=== PATIENT | female | born 1965 | race Caucasian/White ===

== ENCOUNTER 2017-03-27 09:20 | Emergency (ER) | payer BC ==
[2017-03-27] MEDS ORDERED: HUMULIN R 100 UNIT/ML VIAL SC ONE (09:21)
[2017-03-27 10:51] LABS: BASO % 0.6 % (0-6); EOS % 0.3 % (0-6); GRAN % 73.9 % (47-80); HEMATOCRIT 49.1 % (35.0-47.0); HEMOGLOBIN 16.9 gm/dl (11.6-16.0); LYMPH % 19.2 % (16-45); MEAN CELL VOLUME 83.8 fl (81-97); MEAN CORPUSCULAR HEMOGLOBIN 28.8 pg (27-33); MEAN CORPUSCULAR HGB CONC 34.4 g/dl (32-36); MEAN PLATELET VOLUME 11.1 fl (7.4-10.4); PLATELET COUNT 392 K/uL (130-400); RED BLOOD COUNT 5.86 M/uL (3.80-5.40); RED CELL DISTRIBUTION WIDTH 12.7 % (11.5-14.5); WHITE BLOOD COUNT W/O DIFF 10.9 K/uL (4.2-12.2)
[2017-03-27 11:04] LABS: BILIRUBIN,TOTAL 0.5 mg/dL (0.2-1.0); CREATININE 1.3 mg/dL (0.5-0.9); TOTAL PROTEIN 8.7 g/dL (6.6-8.7)
[2017-03-27 11:09] LABS: ALB/GLOB RATIO 1.4 (1.1-1.8); ALBUMIN 5.1 g/dL (4.0-5.0)
[2017-03-27 11:14] LABS: CREATINE PHOSPHOKINASE 45 U/L (26-192)
[2017-03-27 11:16] LABS: CKMB 3.8 ng/mL (<3.77)
[2017-03-27 11:22] LABS: THYROID STIMULATING HORMONE 1.23 uIU/mL (0.270-4.20)
[2017-03-27] MEDS ORDERED: 0.9 % SODIUM CHLORIDE 1,000 ML BAG IV ONE (11:23)
[2017-03-27] MEDS ORDERED: HUMULIN R 100 UNIT/ML VIAL SQ ONE (11:24)
[2017-03-27 11:46] LABS: ACETONE,SERUM POSITIVE (NEGATIVE)
--- NOTE | 2017-03-27 12:06 | Emergency Department Record ---
History of Present Illness - General Chief Complaint: Dizziness Stated Complaint: DIZZINESS Time Seen by Provider: 03/27/17 10:02 Source: Patient Mode of Arrival: Ambulatory Limitations: No limitations - History of Present Illness Initial Comments: pt has not felt well for 2 wks w inc thirst and inc urination and lack of energy Complaint: Dizziness Onset/Timin -: Days(s) Description: Difficulty walking, Lightheadedness, Off-balance History of Same: Yes Improves With: Nothing Worsens With: Nothing Associated Symptoms: Chest pain, Loss of appetite, Weakness - Leandro Coma Scale Eye Response: (4) Open spontaneously Motor Response: (6) Obeys commands Verbal Response: (5) Oriented [place] Total: 15 - Symptoms of Stroke Symptoms of stroke: Dizziness - Related Data Home Medications Medication Instructions Recorded Confirmed Last Taken Cholecalciferol (Vitamin D3) 5,000 unit PO DAILY 03/27/17 03/27/17 03/26/17 [Vitamin D3] Diltiazem HCl [Diltiazem ER] 240 mg PO DAILY PRN 03/27/17 03/27/17 03/26/17 Duloxetine HCl [Cymbalta] 60 mg PO DAILY 03/27/17 03/27/17 03/26/17 Levocarnitine Tartrate 500 mg PO DAILY 03/27/17 03/27/17 03/26/17 [l-Carnitine] Nebivolol HCl [Bystolic] 20 mg PO DAILY 03/27/17 03/27/17 03/26/17 Promethazine HCl [Phenergan] 25 mg PO BID 03/27/17 03/27/17 03/26/17 Ranitidine HCl [Zantac] 150 mg PO QHS 03/27/17 03/27/17 03/26/17 Allergies Allergy/AdvReac Type Severity Reaction Status Date / Time iodine Allergy ANAPHYLAXIS Verified 03/27/17 12:09 shellfish derived Allergy ANAPHYLAXIS Verified 03/27/17 12:09 Travel Screening - Travel/Exposure Within Last 30 Days Have you traveled within the last 30 days?: No - Travel/Exposure Within Last Year Have you traveled outside the [place] in the last year?: No - Additonal Travel Details Have you been exposed to anyone with a communicable illness?: No - Travel Symptoms Symptom Screening: None Review of Systems Reviewed: No additional complaints except as noted below Constitutional: Reports: As per HPI, Malaise, Weakness. Denies: Chills, Fever, Night sweats, Weight change Eyes: Reports: As per HPI. Denies: Eye discharge, Eye pain, Photophobia, Vision change ENT: Reports: As per HPI. Denies: Congestion, Dental pain, Ear pain, Epistaxis , Hearing loss, Throat pain Respiratory: Reports: As per HPI. Denies: Cough, Dyspnea, Hemoptysis, Stridor, Wheezes Cardiovascular: Reports: As per HPI. Denies: Arrhythmia, Chest pain, Dyspnea on exertion, Edema, Murmurs, Orthopnea, Palpitations, Paroxysmal nocturnal dyspnea, Rheumatic Fever Endocrine: Reports: As per HPI, Fatigue, Polydipsia, Polyuria. Denies: Heat or cold intolerance Gastrointestinal: Reports: As per HPI, Nausea, Vomiting. Denies: Abdominal pain , Constipation, Diarrhea, Hematemesis, Hematochezia, Melena Genitourinary: Reports: As per HPI. Denies: Abnormal menses, Discharge, Dyspareunia, Dysuria, Frequency, Hematuria, Incontinence, Retention, Urgency Musculoskeletal: Reports: As per HPI. Denies: Arthralgia, Back pain, Gout, Joint swelling, Myalgia, Neck pain Skin: Reports: As per HPI. Denies: Bruising, Change in color, Change in hair/ nails, Lesions, Pruritus, Rash Neurological: Reports: As per HPI. Denies: Abnormal gait, Confusion, Headache, Numbness, Paresthesias, Seizure, Tingling, Tremors, Vertigo, Weakness Psychiatric: Reports: As per HPI. Denies: Anxiety, Auditory hallucinations, Depression, Homicidal thoughts, Suicidal thoughts, Visual hallucinations Hematological/Lymphatic: Reports: As per HPI. Denies: Anemia, Blood Clots, Easy bleeding, Easy bruising, Swollen glands Past Medical History - SOCIAL HISTORY Smoking Status: Never smoker Alcohol Use: None Drug Use: None - RESPIRATORY Hx Respiratory Disorders: No - CARDIOVASCULAR Hx Cardio Disorders: No - NEURO Hx Neuro Disorders: Yes Hx Headaches: Yes - GI Hx GI Disorders: Yes Hx Diverticulitis: Yes - Hx Genitourinary Disorders: Yes Hx Kidney Stones: Yes - ENDOCRINE Hx Endocrine Disorders: No Hx Diabetes: (not offically dx'd) - MUSCULOSKELETAL Hx Musculoskeletal Disorders: Yes Hx Fibromyalgia: Yes Hx Gout: Yes - PSYCH Hx Psych Problems: No - HEMATOLOGY/ONCOLOGY Hx Hematology/Oncology Disorders: No Family Medical History Any Significant Family History?: No Physical Exam - General General Appearance: Alert, Oriented x3, Cooperative, Mild distress - Head Head exam: Normal inspection - Eye Eye exam: Normal appearance, PERRL, EOMI Pupils: Normal accommodation - ENT ENT exam: Normal exam, Mucous membranes dry, Normal external ear exam, Normal orophraynx Ear exam: Normal external inspection. negative: External canal tenderness Nasal Exam: Normal inspection. negative: Discharge, Sinus tenderness Mouth exam: Normal external inspection, Tongue normal Teeth exam: Normal inspection. negative: Dental caries Throat exam: Normal inspection. negative: Tonsillar erythema, Tonsillar exudate - Neck Neck exam: Normal inspection, Full ROM. negative: Tenderness - Respiratory Respiratory exam: Normal lung sounds bilaterally. negative: Respiratory distress - Cardiovascular Cardiovascular Exam: Regular rate, Normal rhythm, Normal heart sounds - GI/Abdominal GI/Abdominal exam: Soft, Normal bowel sounds. negative: Tenderness - Rectal Rectal exam: Deferred - exam: Deferred - Extremities Extremities exam: Normal inspection, Full ROM, Normal capillary refill. negative: Tenderness - Back Back exam: Reports: Normal inspection, Full ROM. Denies: Muscle spasm, Rash noted, Tenderness - Neurological Neurological exam: Alert, Normal gait, Oriented X3, Reflexes normal - Psychiatric Psychiatric exam: Normal affect, Normal mood - Skin Skin exam: Dry, Intact, Normal color, Warm Course Vital Signs 03/27/17 09:21 Temperature 98.0 F Pulse Rate 101 H Respiratory 20 Rate Blood Pressure 177/116 Pulse Ox 97 Medical Decision Making - Lab Data Result diagrams: 03/27/17 10:13 03/27/17 10:13 Lab Results 03/27/17 03/27/17 03/27/17 Range/Units 10:13 10:13 10:13 WBC 10.9 (4.2-12.2) K/uL RBC 5.86 H (3.80-5.40) M/uL Hgb 16.9 H (11.6-16.0) gm/dl Hct 49.1 H (35.0-47.0) % MCV 83.8 (81-97) fl MCH 28.8 (27-33) pg MCHC 34.4 (32-36) g/dl RDW 12.7 (11.5-14.5) % Plt Count 392 (130-400) K/uL MPV 11.1 H (7.4-10.4) fl Gran % 73.9 (47-80) % Lymphocytes % 19.2 (16-45) % Monocytes % 6.0 (0-9) % Eosinophils % 0.3 (0-6) % Basophils % 0.6 (0-6) % Sodium 135 L (136-145) mmol/L Potassium 5.0 H (3.4-4.5) mmol/L Chloride 90 L (98-107) mmol/L Carbon Dioxide 12.0 L (22-29) mmol/L Anion Gap 33.0 H (7-16) BUN 22 H (6-20) mg/dL Creatinine 1.3 H (0.5-0.9) mg/dL Estimated GFR 46 mL/min Random Glucose 600 H* (74-109) mg/dL Calcium 10.0 (8.6-10.0) mg/dL Total Bilirubin 0.50 (0.2-1.0) mg/dL AST 19 (10.0-35.0) U/L ALT 38 H (<33) U/L Alkaline Phosphatase 120 H (35-104) U/L Creatine Kinase 45 (26-192) U/L CK-MB (CK-2) 3.8 H (<3.77) ng/mL Troponin T < 0.010 (0-0.010) ng/mL Total Protein 8.7 (6.6-8.7) g/dL Albumin 5.1 H (4.0-5.0) g/dL Globulin 3.6 (1.4-4.8) gm/dL Albumin/Globulin Ratio 1.4 (1.1-1.8) TSH 1.23 (0.270-4.20) uIU/mL Acetone, Qual (NEGATIVE) 03/27/17 Range/Units 11:31 WBC (4.2-12.2) K/uL RBC (3.80-5.40) M/uL Hgb (11.6-16.0) gm/dl Hct (35.0-47.0) % MCV (81-97) fl MCH (27-33) pg MCHC (32-36) g/dl RDW (11.5-14.5) % Plt Count (130-400) K/uL MPV (7.4-10.4) fl Gran % (47-80) % Lymphocytes % (16-45) % Monocytes % (0-9) % Eosinophils % (0-6) % Basophils % (0-6) % Sodium (136-145) mmol/L Potassium (3.4-4.5) mmol/L Chloride (98-107) mmol/L Carbon Dioxide (22-29) mmol/L Anion Gap (7-16) BUN (6-20) mg/dL Creatinine (0.5-0.9) mg/dL Estimated GFR mL/min Random Glucose (74-109) mg/dL Calcium (8.6-10.0) mg/dL Total Bilirubin (0.2-1.0) mg/dL AST (10.0-35.0) U/L ALT (<33) U/L Alkaline Phosphatase (35-104) U/L Creatine Kinase (26-192) U/L CK-MB (CK-2) (<3.77) ng/mL Troponin T (0-0.010) ng/mL Total Protein (6.6-8.7) g/dL Albumin (4.0-5.0) g/dL Globulin (1.4-4.8) gm/dL Albumin/Globulin Ratio (1.1-1.8) TSH (0.270-4.20) uIU/mL Acetone, Qual Positive (NEGATIVE) Disposition Disposition: Admit Clinical Impression: New onset type 2 diabetes mellitus DKA (diabetic ketoacidosis) Qualifiers: Diabetes mellitus type: type 2 Diabetes mellitus complication detail: without coma Qualified Code(s): E11.10 - Type 2 diabetes mellitus with ketoacidosis without coma Disposition: Still a Patient at [facility] Decision to Admit: Admit from ER Decision to Admit Date: 03/27/17 Decision to Admit Time: 13:02 Forms: Patient Portal Access Quality - Quality Measures Quality Measures: N/A - Blood Pressure Screening Does Patient Have Any of the Following: No Blood Pressure Classification: Hypertensive Reading Systolic Measurement: 177 Diastolic Measurement: 116 Screening for High Blood Pressure: < First Hypertensive BP, F/U Documented > [ G8950] First Hypertensive Follow-up Interventions: Follow-up with rescreen GT 1 day and LT 4 weeks.
[2017-03-27 12:13] LABS: URINE APPEARANCE CLEAR; URINE BILIRUBIN SMALL (NEGATIVE); URINE BLOOD TRACE-I (NEGATIVE); URINE COLOR YELLOW; URINE LEUKOCYTE ESTERASE NEGATIVE (NEGATIVE); URINE NITRITE NEGATIVE (NEGATIVE); URINE UROBILINOGEN 0.2 E.U./dL (0.20 - 1.00)
[2017-03-27 12:15] LABS: URINE GLUCOSE (UA) >=1000 mg/dL (NEGATIVE); URINE KETONE 160 mg/dL (NEGATIVE)
[2017-03-27 12:19] LABS: URINE WBC NONE SEEN (0-2/hpf)
[2017-03-27] MEDS ORDERED: INSULIN REGULAR, HUMAN 100 UNIT in 0.9 % SODIUM CHLORIDE 100ML 100 ML IV SCH ×2 (13:30)
== END 2017-03-27 16:25 | disposition still patient (30) ==
LOC: ER 09:20
DX: E11.10 Type 2 diabetes mellitus with ketoacidosis without coma (principal); R42 Dizziness and giddiness; R07.9 Chest pain, unspecified; R53.1 Weakness
CPT/HCPCS: 99285 ×2; 96372; 96365; 96366; 82550; 82800; 85025; 82553; 80053; 36416; 81001; 82009; 82948; 84443; 84484; 93005; 93010; J1815; J7030

== ENCOUNTER 2018-01-26 21:18 | Emergency (ER) | payer BC ==
[2018-01-26] MEDS ORDERED: LORAZEPAM 2 MG/ML VIAL IV ONE (21:32)
[2018-01-26] MEDS ORDERED: METOPROLOL TART 5 MG/5 ML VIAL IV ONE (21:32)
--- NOTE | 2018-01-26 21:37 | Emergency Department Record ---
History of Present Illness - General Chief Complaint: Hypertension Stated Complaint: HIGH BP Time Seen by Provider: 01/26/18 21:32 Source: Patient Mode of Arrival: Ambulatory Limitations: No limitations - History of Present Illness Initial Comments: 52 yo female presents to ED for evaluation of elevated blood pressure and "feeling as though I'm going to pass out". Patient reports a history of HTN controlled with Losartan, denies change in her medications or missed dosing. Patient denies chest pain or focal weakness on examination, does reports headache symptoms. MD Complaint: Lightheadedness Onset/Timin -: Week(s) Timing: Unsure Description: Lightheadedness Improves With: Nothing Worsens With: Nothing Associated Symptoms: Denies other symptoms - Leandro Coma Scale Eye Response: (4) Open spontaneously Motor Response: (6) Obeys commands Verbal Response: (5) Oriented [place] Total: 15 - Related Data Home Medications Medication Instructions Recorded Confirmed Last Taken Insulin Aspart [Novolog] 5 unit SQ WMEALS 01/26/18 01/26/18 Unknown Insulin Detemir [Levemir Flextouch] 22 unit SC DAILY 01/26/18 01/26/18 Unknown Ketorolac Tromethamine 10 mg PO ASDIR 01/26/18 01/26/18 Unknown Losartan Potassium [Cozaar] 50 mg PO DAILY 01/26/18 01/26/18 Unknown Allergies Allergy/AdvReac Type Severity Reaction Status Date / Time iodine Allergy ANAPHYLAXIS Verified 03/27/17 12:09 shellfish derived Allergy ANAPHYLAXIS Verified 03/27/17 12:09 Review of Systems Constitutional: Denies: Chills, Fever, Malaise, Night sweats Eyes: Denies: Eye discharge, Eye pain ENT: Denies: Congestion, Ear pain, Epistaxis Respiratory: Denies: Cough, Dyspnea Cardiovascular: Denies: Chest pain, Dyspnea on exertion Endocrine: Denies: Fatigue, Heat or cold intolerance Gastrointestinal: Denies: Abdominal pain, Nausea, Vomiting Genitourinary: Denies: Incontinence, Retention Musculoskeletal: Denies: Arthralgia, Back pain Skin: Denies: Bruising, Change in color Neurological: Reports: Headache, Other (Lightheaded sensation). Denies: Abnormal gait, Confusion, Seizure Psychiatric: Denies: Anxiety Hematological/Lymphatic: Denies: Anemia, Blood Clots Past Medical History - SOCIAL HISTORY Smoking Status: Never smoker Drug Use: None - RESPIRATORY Hx Respiratory Disorders: No - CARDIOVASCULAR Hx Cardio Disorders: No - NEURO Hx Neuro Disorders: Yes Hx Headaches: Yes - GI Hx GI Disorders: Yes Hx Diverticulitis: Yes - Hx Genitourinary Disorders: Yes Hx Kidney Stones: Yes - ENDOCRINE Hx Endocrine Disorders: No Hx Diabetes: (not offically dx'd) - MUSCULOSKELETAL Hx Musculoskeletal Disorders: Yes Hx Fibromyalgia: Yes Hx Gout: Yes - PSYCH Hx Psych Problems: No - HEMATOLOGY/ONCOLOGY Hx Hematology/Oncology Disorders: No Physical Exam - General General Appearance: Alert, Oriented x3, Cooperative, Mild distress Limitations: No limitations - Head Head exam: Atraumatic, Normocephalic, Normal inspection Head exam detail: negative: Abrasion, Contusion, Orta's sign, General tenderness, Hematoma, Laceration - Eye Eye exam: Normal appearance. negative: Conjunctival injection, Periorbital swelling, Periorbital tenderness, Scleral icterus - ENT Ear exam: negative: Auricular hematoma, Auricular trauma Nasal Exam: negative: Active bleeding, Discharge, Dried blood, Foreign body Mouth exam: negative: Drooling, Laceration, Muffled voice, Tongue elevation - Neck Neck exam: Normal inspection. negative: Meningismus, Tenderness - Respiratory Respiratory exam: Normal lung sounds bilaterally. negative: Rales, Respiratory distress, Rhonchi, Stridor - Cardiovascular Cardiovascular Exam: Regular rate, Normal rhythm, Normal heart sounds - GI/Abdominal GI/Abdominal exam: Soft. negative: Rebound, Rigid, Tenderness - Rectal Rectal exam: Deferred - exam: Deferred - Extremities Extremities exam: Normal inspection. negative: Pedal edema, Tenderness - Back Back exam: Denies: CVA tenderness (R), CVA tenderness (L) - Neurological Neurological exam: Alert, Normal gait, Oriented X3 - Psychiatric Psychiatric exam: Normal affect, Normal mood - Skin Skin exam: Normal color. negative: Abrasion Type of lesion: negative: abrasion Course - Reevaluation(s) Reevaluation #1: 01/26/18 21:46 EKG: NSR 86 LAD, normal intervals No acute ST-T wave changes are present. Reevaluation #2: 01/26/18 22:03 Laboratory studies were reviewed and are grossly unremarkable for an acute process. Reevaluation #3: 01/26/18 22:48 Patient is back from CT imaging BP 174/82. Patient reports improvement in her headache symptoms as well. Reevaluation #4: 01/26/18 23:10 CT Head w/wo contrast: No acute process Correlate for possible exopthalmos Patient was updated on all results, reports that her headache symptoms have improved to 2/10. Repeat BP 159/88. Patient was instructed to follow-up with her PCP Sunday for further evaluation. Medical Decision Making - Lab Data Result diagrams: 01/26/18 21:30 01/26/18 21:30 Disposition Disposition: Discharge Clinical Impression: Hypertension Qualifiers: Hypertension type: unspecified Qualified Code(s): I10 - Essential (primary) hypertension Headache Qualifiers: Headache type: unspecified Headache chronicity pattern: acute headache Intractability: not intractable Qualified Code(s): R51 - Headache Disposition: Home, Self-Care Condition: (2) Stable Instructions: Hypertension (ED) Additional Instructions: Return to ED if your symptoms worsen or if you have any concerns. Follow-up with your family doctor in 1-3 days as directed. Forms: Patient Portal Access Time of Disposition: 23:13 Quality - Quality Measures Quality Measures: N/A - Blood Pressure Screening Does Patient Have Any of the Following: Active Dx of HTN Blood Pressure Classification: Hypertensive Reading Systolic Measurement: 215 Diastolic Measurement: 123 Screening for High Blood Pressure: Patient Exclusion, Hx of HTN [G9744]
[2018-01-26 21:39] LABS: BASO % 0.7 % (0-6); EOS % 1.2 % (0-6); GRAN % 54.3 % (47-80); HEMATOCRIT 40.6 % (35.0-47.0); HEMOGLOBIN 13.6 gm/dl (11.6-16.0); LYMPH % 34.1 % (16-45); MEAN CELL VOLUME 87.9 fl (81-97); MEAN CORPUSCULAR HEMOGLOBIN 29.4 pg (27-33); MEAN CORPUSCULAR HGB CONC 33.5 g/dl (32-36); MEAN PLATELET VOLUME 9.4 fl (7.4-10.4); MONO % 9.7 % (0-9); PLATELET COUNT 371 K/uL (130-400); RED BLOOD COUNT 4.62 M/uL (3.80-5.40); RED CELL DISTRIBUTION WIDTH 12.6 % (11.5-14.5); WHITE BLOOD COUNT W/O DIFF 8.2 K/uL (4.2-12.2)
[2018-01-26 21:51] LABS: BLOOD UREA NITROGEN 16 mg/dL (6-20); EST GLOMERULAR FILTRATION RATE > 60 mL/min
[2018-01-26 21:52] LABS: TOTAL PROTEIN 7.3 g/dL (6.6-8.7)
[2018-01-26 21:54] LABS: GLUCOSE,RANDOM 183 mg/dL (74-109)
[2018-01-26 21:57] LABS: ALB/GLOB RATIO 1.7 (1.1-1.8); ALBUMIN 4.6 g/dL (4.0-5.0); ALKALINE PHOSPHATASE 103 U/L (35-104); ALT/SGPT 56 U/L (<33); AST/SGOT 40 U/L (10.0-35.0)
[2018-01-26] MEDS ORDERED: ONDANSETRON HCL IV 4 MG/2 ML VIAL IVP ONE (22:11)
[2018-01-26] MEDS ORDERED: DIPHENHYDRAMINE HCL 50 MG/ML VIAL IVP ONE (22:12)
[2018-01-26] MEDS ORDERED: METOCLOPRAMIDE HCL 10 MG/2 ML VIAL IVP ONE (22:12)
--- NOTE | 2018-01-28 12:28 | CT SCAN REPORT ---
EXAM: CT SCAN OF THE HEAD WITH AND WITHOUT CONTRAST HISTORY: PATIENT HAS FRONTAL HEADACHES. TECHNIQUE: Serial axial CT scan of the head was performed at 2.5 mm intervals from the base of the skull to the apex with and without the use of intravenous contrast. Approximately 60 ml of Omnipaque 300 was administered intravenously. FINDINGS: The ventricles demonstrate normal contour, size, and attenuation. There is mild frontal volume loss. There is no mass or mass effect. The lyn and white differentiation appear within normal limits. There is no CT evidence of intra or extraaxial fluid to suggest bleeding. The lyn and white differentiation is within normal limits. Post contrast images demonstrate no obvious enhancing mass lesions. Of note is that the patient's bilateral globes are anterior to the line between the bilateral orbital ramires. This finding suggest exophthalmus. There is abundant retroseptal fat. Clinical correlation for thyroid ophthalmopathy is recommended. Bone windows demonstrate no CT evidence of a fracture or dislocation of the skull. The paranasal sinuses are unremarkable. IMPRESSION: 1. NO CT EVIDENCE OF AN ACUTE INTRACRANIAL PROCESS. 2. THERE ARE FINDINGS SUGGESTIVE OF EXOPHTHALMUS. CLINICAL CORRELATION FOR THYROID OPHTHALMOPATHY IS RECOMMENDED. JOB NUMBER: [id number] MTDD
== END 2018-01-26 23:20 | disposition home or self-care (01) ==
LOC: ER 21:18
DX: I10 Essential (primary) hypertension (principal); R51 Headache; R42 Dizziness and giddiness; E11.9 Type 2 diabetes mellitus without complications; Z79.01 Long term (current) use of anticoagulants
CPT/HCPCS: 99284 ×2; 96374; 96375; 85025; 80053; 70470; 93005; 93010; Q9967; J2405; J2060; J1200; J2765

== ENCOUNTER 2018-12-06 08:52 | Emergency (ER) | payer BC ==
--- NOTE | 2018-12-06 09:05 | Emergency Department Record ---
History of Present Illness - General Chief complaint: Flank Pain Stated complaint: RIGHT SIDE FLANK PAIN Time Seen by Provider: 12/06/18 08:54 Source: Patient Mode of Arrival: Ambulatory Limitations: No limitations - History of Present Illness Initial comments: 53 yo female presents with right flank pain that started this morning. She reports it is sharp and starts in her back. The pain radiates around to the front. No fever. She has associated nausea. No diarrhea. She was seen by her PCP 2 days ago. She has some urinary frequency and burning. No visible blood. No rash. She has had renal stones in the past. MD Complaint: Dysuria, Other (right flank pain) -: Hour(s) Location: RLQ Radiation: RLQ Severity: Severe Quality: Aching, Sharp Consistency: Constant Improves with: None Worsens with: None Associated Symptoms: Abdominal pain, Loss of appetite, Nausea/vomiting - Related Data Sexually active: No Previous Rx's Medication Instructions Recorded Hydrocodone/Acetaminophen [[place] 1 each PO Q6H #8 tablet 12/06/18 5-325 Tablet] Ondansetron [Zofran Odt] 4 mg PO Q8H #15 tab.rapdis 12/06/18 Tamsulosin HCl [Flomax] 0.4 mg PO DAILY #7 cap.er.24h 12/06/18 Allergies Allergy/AdvReac Type Severity Reaction Status Date / Time iodine Allergy ANAPHYLAXIS Verified 03/27/17 12:09 shellfish derived Allergy ANAPHYLAXIS Verified 03/27/17 12:09 Review of Systems Constitutional: Denies: Chills, Fever, Malaise, Weakness Eyes: Denies: Eye discharge ENT: Denies: Congestion, Throat pain Respiratory: Denies: Cough, Dyspnea, Hemoptysis, Stridor, Wheezes Cardiovascular: Denies: Chest pain, Palpitations, Syncope Endocrine: Denies: Fatigue, Polydipsia, Polyuria Gastrointestinal: Reports: Abdominal pain (R flank pain), Nausea, Vomiting. Denies: Constipation, Diarrhea Genitourinary: Denies: Dysuria, Urgency Musculoskeletal: Reports: Back pain (R flank pain). Denies: Arthralgia Skin: Denies: Bruising, Change in color, Rash Neurological: Denies: Headache Psychiatric: Denies: Anxiety Hematological/Lymphatic: Denies: Easy bleeding, Easy bruising Past Medical History - SOCIAL HISTORY Smoking Status: Never smoker Drug Use: None - RESPIRATORY Hx Respiratory Disorders: No - CARDIOVASCULAR Hx Cardio Disorders: No - NEURO Hx Neuro Disorders: Yes Hx Headaches: Yes - GI Hx GI Disorders: Yes Hx Diverticulitis: Yes - Hx Genitourinary Disorders: Yes Hx Kidney Stones: Yes - ENDOCRINE Hx Endocrine Disorders: No Hx Diabetes: (not offically dx'd) - MUSCULOSKELETAL Hx Musculoskeletal Disorders: Yes Hx Fibromyalgia: Yes Hx Gout: Yes - PSYCH Hx Psych Problems: No - HEMATOLOGY/ONCOLOGY Hx Hematology/Oncology Disorders: No Physical Exam - General General Appearance: Alert, Oriented x3, Cooperative, No acute distress Limitations: No limitations - Head Head exam: Atraumatic, Normal inspection - Eye Eye exam: Normal appearance. negative: Conjunctival injection - ENT ENT exam: Normal exam, Mucous membranes moist Ear exam: Normal external inspection Nasal Exam: Normal inspection Mouth exam: Normal external inspection - Neck Neck exam: Normal inspection - Respiratory Respiratory exam: Normal lung sounds bilaterally. negative: Respiratory distress - Cardiovascular Cardiovascular Exam: Regular rate, Normal rhythm, Normal heart sounds - GI/Abdominal GI/Abdominal exam: Soft, Tenderness (Tender R flank pain on exam, normal inspection) - Rectal Rectal exam: Deferred - exam: Deferred - Extremities Extremities exam: Normal inspection. negative: Tenderness - Back Back exam: Denies: CVA tenderness (R), CVA tenderness (L) - Neurological Neurological exam: Alert, Oriented X3 - Psychiatric Psychiatric exam: Normal affect, Normal mood - Skin Skin exam: Dry, Intact, Normal color, Warm Course - Reevaluation(s) Reevaluation #1: 12/06/18 09:56 The CBC was normal Moderate blood noted on the UA. N-LE-, No bacteria Note: she has not started her antibiotic 12/06/18 10:33 12/06/18 11:[address] was consistent with 2.5mm distal ureteral stone. Incidental findings also reviewed and discussed with the patient Her pain is controlled at this time She requests flomax A strainer was provided She will be OK's home with supportive care for passing a stone No sign of UTI on today's UA. No immediate strong indication for antibiotics Medical Decision Making - Lab Data Result diagrams: 12/06/18 09:20 12/06/18 09:20 Disposition Disposition: Discharge Clinical Impression: Renal colic on right side Disposition: Home, Self-Care Condition: (1) Good Instructions: Renal Colic (ED) Additional Instructions: Review this ER visit and the tests performed with your family doctor including the final CT report to review any incidental findings Call your doctor for the next available follow up appointment Return to the ER for a recheck if worse, any new concerns or questions Take the prescriptions provided as directed Prescriptions: Tamsulosin HCl [Flomax] 0.4 mg PO DAILY #7 cap.er.24h Hydrocodone/Acetaminophen [[place] 5-325 Tablet] 1 each PO Q6H #8 tablet Ondansetron [Zofran Odt] 4 mg PO Q8H #15 tab.rapdis Forms: Patient Portal Access Time of Disposition: 11:07 Quality - Quality Measures Quality Measures: N/A - Blood Pressure Screening Does Patient Have Any of the Following: No Blood Pressure Classification: Hypertensive Reading Systolic Measurement: 224 Diastolic Measurement: 126 Screening for High Blood Pressure: < Pre-Hypertensive BP, F/U Documented > [G8950] Pre-Hypertensive Follow-up Interventions: Referral to alternative/primary care provider.
[2018-12-06] MEDS ORDERED: ONDANSETRON HCL IV 4 MG/2 ML VIAL IVP ONE (09:15)
[2018-12-06] MEDS ORDERED: KETOROLAC 30 MG/ML VIAL IVP ONE (09:15)
[2018-12-06] MEDS ORDERED: 0.9 % SODIUM CHLORIDE 1,000 ML BAG IV ONE (09:15)
[2018-12-06 09:44] LABS: ABSOLUTE NEUTROPHIL COUNT 3.08; BASO % 0.3 % (0-6); EOS % 1.8 % (0-6); GRAN % 46.5 % (47-80); HEMATOCRIT 42.4 % (35.0-47.0); HEMOGLOBIN 14.8 gm/dl (11.6-16.0); LYMPH % 40.2 % (16-45); MEAN CELL VOLUME 83.5 fl (81-97); MEAN CORPUSCULAR HEMOGLOBIN 29.1 pg (27-33); MEAN CORPUSCULAR HGB CONC 34.9 g/dl (32-36); MEAN PLATELET VOLUME 10.3 fl (7.4-10.4); MONO % 11.2 % (0-9); PLATELET COUNT 307 K/uL (130-400); RED BLOOD COUNT 5.08 M/uL (3.80-5.40); RED CELL DISTRIBUTION WIDTH 12.5 % (11.5-14.5); WHITE BLOOD COUNT W/O DIFF 6.6 K/uL (4.2-12.2)
[2018-12-06 09:45] LABS: URINE APPEARANCE CLEAR; URINE BILIRUBIN NEGATIVE (NEGATIVE); URINE BLOOD MODERATE (NEGATIVE); URINE COLOR YELLOW; URINE KETONE TRACE (NEGATIVE); URINE LEUKOCYTE ESTERASE NEGATIVE (NEGATIVE); URINE NITRITE NEGATIVE (NEGATIVE); URINE UROBILINOGEN 0.2 E.U./dL (0.20 - 1.00)
[2018-12-06 09:51] LABS: URINE GLUCOSE (UA) >=1000 mg/dL (NEGATIVE)
[2018-12-06 09:58] LABS: BLOOD UREA NITROGEN 11 mg/dL (6-20); CREATININE 0.8 mg/dL (0.5-0.9); EST GLOMERULAR FILTRATION RATE > 60 mL/min
[2018-12-06 09:59] LABS: TOTAL PROTEIN 7.3 g/dL (6.6-8.7)
[2018-12-06 10:01] LABS: GLUCOSE,RANDOM 402 mg/dL (74-109)
[2018-12-06 10:04] LABS: ALB/GLOB RATIO 1.8 (1.1-1.8); ALBUMIN 4.7 g/dL (4.0-5.0); ALKALINE PHOSPHATASE 115 U/L (35-104); AST/SGOT 43 U/L (10.0-35.0)
[2018-12-06 10:04] LABS: URINE EPITHELIAL CELLS 0 - 2 (FEW); URINE RBC 36 - 50 (NONE SEEN); URINE WBC NONE SEEN (0-2/hpf)
[2018-12-06 10:15] LABS: ALT/SGPT 75 U/L (<33)
[2018-12-06] MEDS ORDERED: MORPHINE SULFATE 5 MG/ML VIAL IVP ONE (10:30)
[2018-12-06] MEDS ORDERED: TAMSULOSIN HCL 0.4 MG CAP.ER.24H PO ONE (11:01)
[2018-12-06] MEDS ORDERED: HYDROCODONE/APAP 5/325MG TABLET PO ONE (11:03)
[2018-12-06] MEDS ORDERED: ONDANSETRON 4 MG ODT TABLET SL ONE (11:03)
--- NOTE | 2018-12-09 19:35 | CT SCAN REPORT ---
EXAM: CT SCAN ABDOMEN/PELVIS WO CONTRAST HISTORY: RIGHT FLANK PAIN. DYSURIA AND HEMATURIA. TECHNIQUE: Thin-collimation helical CT examination of the abdomen and pelvis is performed without intravenous contrast. Lack of oral and IV contrast utilization limits evaluation of the bowel and solid viscera, respectively. COMPARISON: CT abdomen and pelvis without contrast dated 12/04/2012. FINDINGS: There is a 5 mm calcified granuloma in the right lung base. Mild dependent atelectasis in each lung base. Incompletely imaged is a subpleural nodule in the lateral right lower lobe, as seen on the very first image. This measures 2.6 mm to the extent visualized. This is unchanged when compared to a 04/25/2009 examination consistent with a postinflammatory nodule. The visualized lung bases are otherwise clear. No pleural or pericardial effusion. The heart is not enlarged. There is diffuse decreased density of the liver relative to the spleen consistent with steatosis with small areas of sparing in the central liver adjacent to the gallbladder fossa. No suspicious focal hepatic lesion. The pancreas, adrenal glands, and spleen are without focal suspicious abnormality. Calcified granulomata are noted within the spleen. The gallbladder is unremarkable and no biliary ductal dilatation is seen. The kidneys are normal in position. The right kidney is slightly enlarged and there is asymmetric right perinephric fat stranding consistent with edema. There are a couple parenchymal calcifications within the lateral mid to lower right kidney measuring approximately 3 mm each. There is adjacent cortical scarring. Previously demonstrated cystic area in this region appears less pronounced. No other renal calcification/nephrolithiasis is seen. A previously demonstrated tiny nonobstructing calculus in the upper pole of the right kidney is no longer visualized. The left renal collecting system is normal in appearance. There is mild to moderate right hydroureteronephrosis down to the level just proximal to the UVJ, where there is an obstructing 2.5 mm calculus. No intrinsic urinary bladder abnormality. No intraabdominal nor retroperitoneal lymphadenopathy. The vasculature is normal in caliber. No pelvic mass, lymphadenopathy, or free pelvic fluid is seen. The uterus is surgically absent. There may be a cervical remnant. The left ovary is visualized and normal in appearance. The right ovary is not visualized with confidence. No intrinsic urinary bladder abnormality. No gross bowel dilatation nor bowel wall thickening. There is evidence of a nondistended prominent diverticulum arising from the proximal sigmoid colon. No evidence of diverticulitis. The appendix is visualized and normal in appearance. There is a small fat-filled umbilical hernia appearing uncomplicated. Additionally, there is a fat-filled ventral wall hernial located approximately 4 cm above the umbilicus centered slightly left of midline. This measures 3 x 6.5 cm. The abdominal defect measures 11 mm X 6 mm. Subcutaneous fat stranding is demonstrated in the lower abdominal wall, likely scarring. No lytic or blastic bone lesion. IMPRESSION: 1. A 2.5 MM OBSTRUCTING CALCULUS WITHIN THE DISTAL RIGHT URETER JUST PROXIMAL TO THE URETEROVESICAL JUNCTION CAUSING MILD TO MODERATE HYDROURETERONEPHROSIS AND THERE IS PERINEPHRIC EDEMA, POSSIBLY RELATING TO CALICEAL RUPTURE. SUPERIMPOSED INFECTION WOULD BE DIFFICULT TO EXCLUDE. 2. PARENCHYMAL CALCIFICATIONS AGAIN NOTED IN THE RIGHT KIDNEY WITH ASSOCIATED CORTICAL SCARRING. 3. HEPATIC STEATOSIS. 4. HEALED GRANULOMATOUS DISEASE. 5. PROMINENT DIVERTICULUM ARISING FROM THE PROXIMAL SIGMOID COLON WITHOUT EVIDENCE OF DIVERTICULITIS. 6. SMALL FAT-FILLED UMBILICAL HERNIA. SMALL FAT-FILLED VENTRAL WALL HERNIA LOCATED SUPERIOR TO THE UMBILICUS, LEFT OF MIDLINE. JOB NUMBER: [id number] MTDD
== END 2018-12-06 12:00 | disposition home or self-care (01) ==
LOC: ER 08:52
DX: N20.1 Calculus of ureter (principal); R30.0 Dysuria; R11.2 Nausea with vomiting, unspecified; Z87.442 Personal history of urinary calculi
CPT/HCPCS: 99284 ×2; 96374; 96375; 96361; 85025; 80053; 81001; 74176; J1885; J2405; J7030